=== PATIENT | male | born 1975 | race Caucasian/White ===

== ENCOUNTER → 2017-02-09 | Outpatient (CLI) | payer OTHER ==
[~2017-02-09] MED LIST: NORCO 325 MG-51 TAB PO; PYRIDIUM 100MG100 MG PO; ZANTAC 150 EFF150 M1 PO
== END ==
LOC: COL.RAD 07:30
DX: Z85.51 Personal history of malignant neoplasm of bladder (principal)
CPT/HCPCS: Q9967

== ENCOUNTER → 2017-09-11 | Outpatient (CLI) | payer OTHER ==
[2017-09-11 13:26] LABS: HEMOGLOBIN 14.9 g/dl (13.5-18.0); MEAN CELL VOLUME 89 fl (80.0-100.0); MEAN CORPUSCULAR HEMOGLOBIN 30 pg (27.0-31.0); MEAN CORPUSCULAR HGB CONC 34 g/dl (33.0-37.0); MEAN PLATELET VOLUME 11.5 fl (7.4-10.4); PLATELET COUNT 159 K/mm3 (130-400); RED BLOOD COUNT 4.95 M/mm3 (4.20-5.60); REDCELL DISTRIBUTION WIDTH-CV 13.6 % (11.5-14.5); WHITE BLOOD COUNT 5.4 K/mm3 (4.8-10.8)
[2017-09-11 14:03] LABS: ERYTHROCYTE SEDIMENTATION RATE 1 mm/hr (0-15)
== END ==
LOC: COL.LAB 12:50
PROVIDERS: Orthopaedic Surgery Sports Medicine
DX: M79.645 Pain in left finger(s) (principal)

== ENCOUNTER 2021-11-08 15:22 | Emergency (ER) | payer BC ==
[~2021-11-08] VITALS: Ht 188 cm; Wt 97.3 kg
[~2021-11-08 15:22] MED LIST changes: +MOBIC15 MG PO
[2021-11-08 16:23] VITALS: TEMP 101.9
[2021-11-08 17:08] LABS: GRAN # 3.4 K/mm3 (1.4-6.5); GRAN % 81.4 % (42.2-75.2); HEMATOCRIT 48.2 % (42.0-52.0); HEMOGLOBIN 16.3 g/dl (13.5-18.0); LYMPH # 0.6 K/mm3 (1.2-3.4); LYMPH % 13.6 % (20.0-51.0); MEAN CELL VOLUME 86 fl (80.0-100.0); MEAN CORPUSCULAR HEMOGLOBIN 29 pg (27.0-31.0); MEAN CORPUSCULAR HGB CONC 34 g/dl (33.0-37.0); MEAN PLATELET VOLUME 11.6 fl (7.4-10.4); MONO # 0.2 K/mm3 (0.1-0.6); MONO % 4.5 % (1.7-9.3); PLATELET COUNT 117 K/mm3 (130-400); REDCELL DISTRIBUTION WIDTH-CV 13.2 % (11.5-14.5)
[2021-11-08 17:25] LABS: ALANINE AMINOTRANSFERASE 102 U/L (0-55); ALBUMIN 4.1 gm/dL (3.5-5.0); ALKALINE PHOSPHATASE 62 U/L (40-150); ANION GAP 14 mmol/L (7-16); AST,SGOT 93 U/L (5-34); BILIRUBIN,TOTAL 0.5 mg/dL (0.2-1.2); BLOOD UREA NITROGEN 14 mg/dL (9-21); C-REACTIVE PROTEIN 2.99 mg/dL (0.00-0.50); CALCIUM 8.3 mg/dL (8.4-10.2); CARBON DIOXIDE 19 mmol/L (22-29); CHLORIDE 100 mmol/L (98-107); CREATININE, serum 0.89 mg/dL (0.72-1.25); GLUCOSE 92 mg/dL (70-99); POTASSIUM 4.3 mmol/L (3.5-4.5); SODIUM 133 mmol/L (136-145); TOTAL PROTEIN 7.4 gm/dL (6.2-8.1)
[2021-11-08 17:33] LABS: TROPONIN-I < 0.010 ng/mL (0.00-0.033)
[2021-11-08] MEDS ORDERED: DOXYCYCLINE 10100 MG PO (22:50)
[2021-11-08 23:08] VITALS: BP 120/82; PULSE 101
== END 2021-11-08 23:08 | disposition home or self-care (01) ==
LOC: COL.ER 15:22
PROVIDERS: Nurse Practitioner
DX: U07.1 COVID-19 (principal); R79.1 Abnormal coagulation profile
CPT/HCPCS: J7030; Q0244; Q9967

== ENCOUNTER → 2022-06-03 | Outpatient (CLI) | payer BC ==
[~2022-06-03] MED LIST changes: +DOXYCYCLINE 10100 MG PO
== END ==
LOC: COL.RAD 09:57
DX: N32.89 Other specified disorders of bladder (principal); K57.30 Diverticulosis of large intestine without perforation or abscess without bleeding; Z85.51 Personal history of malignant neoplasm of bladder
CPT/HCPCS: Q9967

== ENCOUNTER 2022-06-16 14:20 | Day surgery (SDC) | payer BC ==
[~2022-06-16] VITALS: Ht 188 cm; Wt 97.4 kg
[2022-06-16] VITALS (9 sets, daily range): BP systolic 128–168; BP diastolic 94–107; PULSE 64–85; TEMP 98.2–98.4
--- NOTE | 2022-06-16 22:55 | NUR ---
Patient arrived to surgical unit around 2109. Alert and oriented. Complaining of discomfort to bladder area. Given scheduled APAP and PRN Roxicodone. Continues on CBI, friedman red, some small clots. Patient in good spirits, laughing, smiling, and joking with visitors. In bed with call light within reach. Bed alarm on. Offered B&O suppository, but patient declining at this time.
[2022-06-17] VITALS (7 sets, daily range): BP systolic 126–148; BP diastolic 86–99; PULSE 63–88; TEMP 97.4–98.7
--- NOTE | 2022-06-17 05:54 | NUR ---
Continues on CBI, running moderate. Cannon red output. No clots noted. Denies pain and discomfort. Voices no questions, needs, or concerns. Has been tolerating PO food and fluids well. In bed with call light within reach. Has been awake most of shift.
--- NOTE | 2022-06-17 09:14 | NUR ---
Initial visit; Patient thanked Stock Hanger for looking in on him and offering God's blessings. and Hollis had a nice visit about Hollis living in [place]'s home town. will keep Hollis in her prayers.
--- NOTE | 2022-06-17 10:38 | NUR ---
PT RESTING IN BED. CHRISTOPHER TESFAYE ADMINSTERING MITOMYCIN.
--- NOTE | 2022-06-17 11:48 | NUR ---
Mitomycin instillation completed this AM following chemo precautions with appropriate PPE. Sign placed outside patient room to alert care team as well. Education provided verbally and via handout to patient prior to instillation and throughout process. Patient only tolerated 1 hour dwell time for mitomycin. Primary RN confirmed with urology that it is okay to stop instillation and d/c ulrich after 1 hour if patient uncomfortable. Ulrich/CBI was discontinued after draining urine and mitomycin. Urine noted to be red with some clots. Immediately after ulrich d/c, patient ambulated to bathroom and voided more red colored urine with numerous clots. Notified RN of patient discomfort and concern of clots.
--- NOTE | 2022-06-17 14:44 | NUR ---
COLEEN met with the patient, his daughter (Belinda, ph#[phone]), and girlfriend to discuss discharge plan. The patient lives alone in [place]. He reports independence with ADLs and does not have any DME. The patient's PCP is Dr. Dusty Jean and he receives his medications from [facility]. The patient plans to return home upon discharge. No additional needs at this time. *Discharge plan: home*
--- NOTE | 2022-06-17 19:45 | NUR ---
Pt. sitting up in bed. Pt. is a&OX3, assessment complete. IV to lt. hand patent, IV fluids infusing per orders. Pt. has been voiding, no clots noted at this time. Pt. does still have some blood noted in urine. Pt. reports pain at a 7 on pain scale. Will give pain meds per orders. Pt. denies further needs.
[2022-06-18 04:24] VITALS: BP 132/83; PULSE 68; TEMP 98.1
[2022-06-18 07:55] VITALS: BP 134/84; PULSE 68; TEMP 97.8
--- NOTE | 2022-06-18 09:22 | NUR ---
PT RESTING IN BED REPORTING FEELING MUCH BETTER. VOIDING WITH NO CLOTS TODAY. PT EATING AND DRINKING WITH NO NAUSEA OR VOMITING.
--- NOTE | 2022-06-18 10:48 | NUR ---
Follow-up visit; Patient thanked for peeking in and inquiring how Hollis was doing this morning. Hollis, cheerful as always wished a good day.
[2022-06-18 12:29] VITALS: BP 135/83; PULSE 64; TEMP 98.5
--- NOTE | 2022-06-18 14:54 | NUR ---
DISCHARGE INSTRUCTIONS REVIEWED WITH PT AND FAMILY. QUESTIONS ANSWERED. PT LEFT FLOOR AMBULATORY.
== END 2022-06-18 14:56 | disposition home or self-care (01) ==
LOC: SDCO 14:20 → SURG 21:00 → SDCO 06-18 14:56
DX: C67.4 Malignant neoplasm of posterior wall of bladder (principal)
CPT/HCPCS: OP; C1769; C2617; J1100; J1170; J2175; J2270; J2405; J2704; J3010; J7030; J7120; J9280; Q9967

== ENCOUNTER 2022-06-27 14:05 | Day surgery (SDC) | payer BC ==
[2022-06-27] VITALS (9 sets, daily range): BP systolic 116–148; BP diastolic 69–94; PULSE 73–95; TEMP 97.6–97.8
[~2022-06-27] VITALS: Ht 188 cm; Wt 96.2 kg
--- NOTE | 2022-06-27 19:45 | NUR ---
RECEIVED FROM PACU PER BED, 47Y/O MALE POST TURBT. IS ALERT AND ORIENTED X4. FAMILY AT BEDSIDE. HAS TOSCANO WITH CBI RUNNING, URINE YELLOW AND CLEAR IN TOSCANO BAG. PT DENIES PAIN AT THIS TIME. FAMILY BROUGHT FOOD FOR PT. NO NAUSEA. IV TO RT HAND WITH IVF INFUSING WITHOUT PROBLEM.
--- NOTE | 2022-06-27 21:25 | NUR ---
PT REPORTS LEFT ABD/KIDNEY PAIN. MEDICATED WITH SCHEDULED ES TYLENOL AND OXYCODONE 5MG PO AT THIS TIME.
[2022-06-28 03:51] VITALS: BP 127/90; PULSE 76; TEMP 98.1
--- NOTE | 2022-06-28 04:07 | NUR ---
CBI INFUSING SLOW. URINE YELLOW AND CLEAR. PT REPORTS LEFT ABD PAIN. MEDICATED WITH SCHEDULED ES TYLENOL AND OXYCODONE 5MG PO AT THIS TIME.
--- NOTE | 2022-06-28 04:10 | NUR ---
PT TAKING FLUIDS WELL, IVF CAPPED.
[2022-06-28 08:13] VITALS: BP 140/94; PULSE 77; TEMP 97.9
--- NOTE | 2022-06-28 11:13 | NUR ---
Initial visit; Patient thanked Client Program Manager for looking in on him and offering him blessings. Patient smiles easily, Client Program Manager said his smile speaks to her how he is doing and wishes him well.
[2022-06-28 11:52] VITALS: BP 144/98; PULSE 79; TEMP 97.3
--- NOTE | 2022-06-28 14:43 | NUR ---
PATIENT ALERT AND ORIENTED X4. VSS. PATIENT HERE FOR TURBT, STENT REMOVAL. PATIENT COMPLAINS OF PAIN 5/10. IV TO RIGHT HAND INT, FLUSHES WELL. CBI RUNNING SLOW. PRIME AND PULLED. 6 CUPS URINE COLLECTION STARTED. CALL LIGHT WITHIN REACH.
--- NOTE | 2022-06-28 14:44 | NUR ---
DISCHARGE INSTRUCTIONS PROVIDED. PATIENT EDUCATION GIVEN. FOLLOW UP APPOINTMENTS DISCUSSED. PATIENT DENIES ANY QUESTIONS OR CONCERNS. IV DC'D. PATIENT ESCORTED OUT.
== END 2022-06-28 14:37 | disposition home or self-care (01) ==
LOC: SDCO 14:05 → SURG 19:54 → SDCO 06-28 14:37
DX: N30.90 Cystitis, unspecified without hematuria (principal); Z87.891 Personal history of nicotine dependence
CPT/HCPCS: OP; C1769; J1100; J1885; J2405; J2704; J3010; J3480; J7120; Q9967

== ENCOUNTER 2022-06-29 08:54 | Day surgery (SDC) | payer BC ==
[2022-06-29] VITALS (10 sets, daily range): BP systolic 119–148; BP diastolic 80–98; PULSE 69–80; TEMP 97.6–98.4
[~2022-06-29] VITALS: Ht 188 cm; Wt 96.6 kg
[2022-06-29 09:20] LABS: BASO # 0.1 K/mm3 (0.0-0.2); BASO % 0.4 % (0.0-2.0); EOS # 0.1 K/mm3 (0.0-0.7); EOS % 0.5 % (0.0-4.0); GRAN # 13.9 K/mm3 (1.4-6.5); GRAN % 81.2 % (42.2-75.2); HEMATOCRIT 44.4 % (42.0-52.0); HEMOGLOBIN 15.8 g/dl (13.5-18.0); LYMPH # 1.9 K/mm3 (1.2-3.4); LYMPH % 11.3 % (20.0-51.0); MEAN CELL VOLUME 84 fl (80.0-100.0); MEAN CORPUSCULAR HEMOGLOBIN 30 pg (27-31); MEAN CORPUSCULAR HGB CONC 36 g/dl (33.0-37.0); MEAN PLATELET VOLUME 10.2 fl (7.4-10.4); MONO % 6.1 % (1.7-9.3); PLATELET COUNT 227 K/mm3 (130-400); RED BLOOD COUNT 5.27 M/mm3 (4.20-5.60); REDCELL DISTRIBUTION WIDTH-CV 13.3 % (11.5-14.5)
[2022-06-29 09:30] LABS: INR 1.2 (0.8-3.0); PROTHROMBIN TIME 13.5 SECONDS (9.7-12.8)
[2022-06-29 09:42] LABS: ALBUMIN 4.2 gm/dL (3.5-5.0); BILIRUBIN,TOTAL 1.1 mg/dL (0.2-1.2); CALCIUM 9.7 mg/dL (8.4-10.2); CREATININE, serum 1.88 mg/dL (0.72-1.25); POTASSIUM 4.2 mmol/L (3.5-4.5); TOTAL PROTEIN 7.6 gm/dL (6.2-8.1)
--- NOTE | 2022-06-29 12:13 | NUR ---
PATIENT ALERT AND ORIENTED X4. VSS. PATIENT DENIES PAIN. PATIENT AMBULATED TO BATHROOM. ASSESSMENT PERFORMED. IV TO LEFT AC WITH FLUIDS RUNNING. CALL LIGHT WITHIN REACH.
--- NOTE | 2022-06-29 16:53 | NUR ---
DISCHARGE INSTRUCTIONS PROIDED. PATIENT EDUCATION GIVEN. FOLLOW UP APPOINTMENTS DISCUSSED. IV DC'D. PATIENT ESCORTED OUT VIA WHEELCHAIR.
== END 2022-06-29 16:45 | disposition home or self-care (01) ==
LOC: COL.ER 08:54 → SDCO 09:38 → SURG 09:38 → SDCO 09:38 → COL.ER 09:38 → SDCO 16:45
PROVIDERS: Emergency Medicine
DX: R10.32 Left lower quadrant pain (principal)
CPT/HCPCS: OP; C1769; C2617; J0690; J1100; J1885; J2270; J2405; J2704; J3010; J7120; Q9967

== ENCOUNTER 2022-06-29 17:38 | Day surgery (SDC) | payer BC ==
[2022-06-29] VITALS (8 sets, daily range): BP systolic 104–151; BP diastolic 72–94; PULSE 72–91; TEMP 98.3–99.1
[~2022-06-29] VITALS: Ht 188 cm; Wt 96.8 kg
--- NOTE | 2022-06-29 19:30 | NUR ---
PATIENT GOING DOWN TO OR VIA BED. DAY SHIFT NURSE REPORTS CONSENT IS ON CHART AND SHE FINISHED UP ADMISSION. AT BEDSIDE. PATIENT OFF FLOOR.
--- NOTE | 2022-06-29 21:00 | NUR ---
PATIENT BACK IN ROOM POST OP. ORIENTED BUT DROWSY. VSS. DENIES PAIN OR NAUSEA. IV FLUIDS INFUSING VIA PUMP INTO RIGHT AC IV. URINAL AT BEDSIDE. HEAD TO TOE ASSESSMENT WNL. FAMILY AT BEDSIDE.
--- NOTE | 2022-06-29 23:14 | NUR ---
URINE BLOODY IN URINAL, DENIES ANY NEEDS CURRENTLY.
[2022-06-30 00:20] VITALS: BP 124/86; PULSE 73; TEMP 98.6
[2022-06-30 04:14] VITALS: BP 123/80; PULSE 80; TEMP 98.6
[2022-06-30 08:00] VITALS: BP 137/92; PULSE 68; TEMP 98.5
--- NOTE | 2022-06-30 09:12 | NUR ---
PATIENT ALERT AND ORIENTED X4. VSS. PATIENT REPORTS PAIN 5/10. URINE IS DARK RED. PATIENT'S ORAL INTAKE HAS BEEN MINIMAL THIS MORNING. PATIENT ENCOURAGED TO DRINK MORE. LR RUNNING AT 150 IN RIGHT AC. PATIENT DENIES ANY OTHER ISSUES. ASSESSMENT PERFORMED. AM MEDS ADMINISTERED. CALL LIGHT WITHIN REACH.
--- NOTE | 2022-06-30 10:51 | NUR ---
Initial visit; Patient thanked Pigment Furnace Tender for offering spiritual care and spoke of his family and home town. Pigment Furnace Tender stated that it sounds as if he has a wonderful support system and wished him well and offered God's Blessings.
[2022-06-30 12:10] VITALS: BP 134/88; PULSE 83; TEMP 98.5
--- NOTE | 2022-06-30 13:54 | NUR ---
upkeep worker met with patient to complete intake and discuss discharge plan. Patient reports that he lives at home alone in [place]. He is independent with his ADL's and does not utilize any DME to assist with mobility. Patient has no home oxygen need. PCP is Dr. Jean and he utilizes [facility] in [place]. Patient is not legally but does have an adult daughter Belinda ([phone]). Patient is planning on discharging later today and has no concerns with returning home. DIscharge plan: Home
--- NOTE | 2022-06-30 15:10 | NUR ---
DISCHARGE INSTRCUTIONS PROVIDED. PATIENT EDUCATION GIVEN. IV DC'D. PATIENT DENIES ANY QUESTIONS OR CONCERNS. PATIENT ESCORTED OUT VIA WHEELCHAIR.
== END 2022-06-30 13:00 | disposition home or self-care (01) ==
LOC: SDCO 17:38 → SURG 18:30 → SDCO 06-30 13:00
DX: R10.32 Left lower quadrant pain (principal)
CPT/HCPCS: OP; A9284; C1769; C2617; J0690; J2704; J2765; J3010; J7120